=== PATIENT | male | born 1955 | race Two or more races ===

== ENCOUNTER 2022-03-13 19:56 | Inpatient (IN) | payer OTHER ==
[~2022-03-13] VITALS: Ht 182.9 cm; Wt 96.6 kg
--- NOTE | 2022-03-13 22:33 | NUR ---
SE RECIBE PTE ALERTA Y ORIENTADO REFIERE DEBILIDAD EN AMBAS PIERNAS Y SE OBSERVA EDEMATOSO MANO DERECHA, PTE SATURA 94% SEW REALIZA EKG SE PRESENTA A DR. SALVADOR Y SE JASPAL VITALES Y SE CAROLA EN ANTHONY DE ESPERA.
--- NOTE | 2022-03-14 00:39 | NUR ---
SE RECIBE PACIENTE MASCULINO ALERTA Y ORIENTADO X3, EN CAMA #1 CON BARRANDAS ELEVADAS. SE CONECTA A MONITOR CARDIACO Y OXIMETRIA DE PULSO. SE LE ORIENTA A PACIENTE SOBRE LAS ORDENES MEDICAS, REFIERE ENTEDER LAS MISMAS. SE LE JASPAL LAS MUESTRAS Y SE LE ADMINISTRA MEDICAMENTO FIDEL LAS ORDENES MEDICAS. SE LE REALIZA PLACA PORTABLE. SE OBSERVA POR CAMBIOS.
--- NOTE | 2022-03-14 07:58 | NUR ---
SE RECIBE PACIENTE DE TURNO ANTERIOR ALERTA Y ORIENTADO X3. UBICADA EN CAMA #1 DE ICU-2, CONECTADO A ONITOR CARDIO Y OXIMETRIA DE PULSO. SE OBSERVA CON CANULA NASAL A 3 L/MIN LA CUAL TOLERA, SE OBSERVA CON BUEN PATRON RESPIRATORIO. SATURANDO 97%. PIEL TIBIA AL TACTO, SE OBSERVA CON LEVE EDEMA EN EXTREMIDAD DERECHA SUPERIOR Y HEMATOMAS EN EXTREMIDAD SUPERIOR IZQUIERDA. IVS PATENTES EN BRAZO AVERY LIBRES DE EDEMA O ERITEMA CON ANGIO #18 CON FECHA DE 03/13/2022. SE OBSERVA FOLLEY PATENTE CON EGRESO URINARIO APROXIMADO DE 25 ML CON FECHA DE 03/14/2022. PACIENTE PENDIENTE A RE EVALUACION MEDICA. SE MANTIENE BAJO OBSERVACION EN CAMA A NIVEL MAS BAJO, BARANDAS ELEVADAS. CONECTADO A MONITOR CARDIACO Y OXIMETRIA DE PULSO.
[2022-03-21] MEDS ORDERED: RAYOS5 MG (16:00)
[2022-03-21] MEDS ORDERED: DIGOXIN125 MCG (16:00)
[2022-03-21] MEDS ORDERED: SPIRONOLACTONE25 MG (16:01)
[2022-03-21] MEDS ORDERED: FUROSEMIDE40 MG (16:01)
[2022-03-21] MEDS ORDERED: GABAPENTIN100 M2 (16:01)
[2022-03-21] MEDS ORDERED: STIOLTO RESPIMAT4 GM (16:01)
[2022-03-21] MEDS ORDERED: CARVEDILOL25 M1 (16:01)
[2022-03-21] MEDS ORDERED: SIMVASTATIN20 MG (16:01)
[2022-03-21] MEDS ORDERED: LISINOPRIL5 MG (16:01)
[2022-03-27] MEDS ORDERED: CARVEDILOL25 M1 PO (21:19)
[2022-03-27] MEDS ORDERED: DIGOXIN125 MCG PO (21:19)
[2022-03-27] MEDS ORDERED: CLOTRIMAZOLE-BE15 G1 TOP (21:19)
[2022-03-27] MEDS ORDERED: MUPIROCIN22 GM TOP (21:19)
[2022-03-27] MEDS ORDERED: FUROSEMIDE20 MG PO (21:19)
[2022-03-27] MEDS ORDERED: NORVASC2.5 M1 PO (21:19)
[2022-03-27] MEDS ORDERED: IPRATROPIU0.2 MG/1 M IH (21:19)
[2022-03-27] MEDS ORDERED: STIOLTO RESPIMAT4 GM PO (21:19)
[2022-03-27] MEDS ORDERED: XOPENEX CO1.25 MG/0. IH (21:19)
[2022-03-27] MEDS ORDERED: GABAPENTIN300 MG PO (21:19)
[2022-03-27] MEDS ORDERED: SPIRONOLACTONE25 MG PO ×2 (21:19)
[2022-03-27] MEDS ORDERED: AMOX-CLAV 875-1 EAC1 PO (21:19)
[2022-03-27] MEDS ORDERED: CYCLOBENZAPRINE10 MG PO (21:19)
== END 2022-03-27 21:36 | disposition home or self-care (01) | DRG 191 ==
LOC: ER 19:56 → EDBD 20:00 → ER 20:00 → SEC-K 03-14 14:04 → MEDI 03-14 14:04 → O/R 03-22 15:53 → MEDI 03-22 15:56
PROVIDERS: ADMIT Internal Medicine; ATTEND Internal Medicine
PROC: BW24ZZZ Computerized Tomography (CT Scan) of Chest and Abdomen (ICD-10-PCS; principal; 2022-03-14)
PROC: B246ZZZ Ultrasonography of Right and Left Heart (ICD-10-PCS; 2022-03-14)
PROC: 3E0F7GC Introduction of Other Therapeutic Substance into Respiratory Tract, Via Natural or Artificial Opening (ICD-10-PCS; 2022-03-14)
PROC: BR29ZZZ Computerized Tomography (CT Scan) of Lumbar Spine (ICD-10-PCS; 2022-03-17)
PROC: BR39ZZZ Magnetic Resonance Imaging (MRI) of Lumbar Spine (ICD-10-PCS; 2022-03-22)
PROC: BP2 Imaging, Non-Axial Upper Bones, Computerized Tomography (CT Scan) (ICD-10-PCS; 2022-03-24)
PROC: B44HZZZ Ultrasonography of Bilateral Lower Extremity Arteries (ICD-10-PCS; 2022-03-24)
DX: J44.1 Chronic obstructive pulmonary disease with (acute) exacerbation (principal); I50.30 Unspecified diastolic (congestive) heart failure; L03.113 Cellulitis of right upper limb; L30.9 Dermatitis, unspecified; M43.17 Spondylolisthesis, lumbosacral region; I11.0 Hypertensive heart disease with heart failure; F17.200 Nicotine dependence, unspecified, uncomplicated; M51.16 Intervertebral disc disorders with radiculopathy, lumbar region; D72.829 Elevated white blood cell count, unspecified; I73.89 Other specified peripheral vascular diseases; Z20.822 Contact with and (suspected) exposure to COVID-19
CPT/HCPCS: 72148